=== PATIENT | male | born 1940 | race Caucasian/White ===

== ENCOUNTER → 2019-07-01 | Outpatient (CLI) | payer OTHER ==
[2019-07-01 11:00] LABS: ABSOLUTE EOSINOPHILS 0.3 thou/uL (0.0-0.7); ABSOLUTE LYMPHOCYTES 2.1 thou/uL (0.8-5.3); ABSOLUTE MONOCYTES 0.6 thou/uL (0.0-1.2); ABSOLUTE NEUTROPHILS 2.9 thou/uL (1.6-8.1); BASOPHILS 0.7 %; EOSINOPHILS 5.8 %; HEMOGLOBIN 13.5 gm/dL (14.0-18.0); LYMPHOCYTES 34.7 %; MCH 31.2 pg (26.0-34.0); MCHC 33.7 g/dL (28.0-37.0); MCV 92.6 fL (80.0-100.0); MONOCYTES 9.6 %; MPV 7.9 fl. (7.2-11.1); NUCLEATED RBCS 0 /100WBC; PLATELET COUNT* 231 thou/uL (150-400); POLYS 49.2 %; RBC 4.32 mil/uL (4.50-6.00); RDW-CV 14.3 % (10.5-14.5)
[2019-07-01 11:14] LABS: CALCIUM 9.3 mg/dL (8.5-10.1); CREATININE 1.1 mg/dL (0.6-1.3); POTASSIUM 4.1 mmol/L (3.5-5.1)
== END ==
LOC: M.RAD 10:39
PROVIDERS: Internal Medicine Cardiovascular Disease
DX: R06.09 Other forms of dyspnea (principal); R53.82 Chronic fatigue, unspecified

== ENCOUNTER → 2019-11-23 | Outpatient (CLI) | payer OTHER ==
--- NOTE | 2019-11-23 10:23 | 2DMMODE ---
[place] [address] 2 D/M-MODE ECHOCARDIOGRAM Name: MARY JOPRAFULSYLVIA MCCOY MELVIN [id number] Admission: 11/23/19 Attend Phys: Michael Polo, Discharge: Date of : 38 Date of Service: 11/23/19 1022 Report #: [id number] THIS REPORT FOR: //name// APPROVED REPORT Study performed: 11/23/2019 08:46:06 EXAM: Comprehensive 2D, Doppler, and color-flow Echocardiogram Patient Location: Out-Patient BSA: 1.96 HR: 72 bpm BP: 120/75 mmHg Other Information Study Quality: Fair Indications Cardiomyopathy 2D Dimensions IVSd: 11.95 (7-11mm) LVOT Diam: 20.23 (18-24mm) LVDd: 43.06 mm PWd: 11.28 (7-11mm) Ascending Ao: 31.44 (22-36mm) LVDs: 30.76 (25-40mm) Aortic Root: 26.78 mm Volumes Left Atrial Volume (Systole) LA ESV Index: 21.90 mL/m2 Aortic Valve AoV Peak Michael.: 1.34 m/s AO Peak Gr.: 7.23 mmHg LVOT Max P.17 mmHg AO Mean Gr.: 4.44 mmHg LVOT Mean P.76 mmHg LVOT Max V: 0.89 m/s AO V2 VTI: 30.93 cm LVOT Mean V: 0.62 m/s NINOSKA (VTI): 2.39 cm2 LVOT V1 VTI: 22.96 cm Mitral Valve MV Decel. Time: 380.10 ms MV PHT: 110.23 ms MVA (PHT): 2.00 [place] [address] 2 D/M-MODE ECHOCARDIOGRAM Name: SYLVIA AMES MELVIN Room: [facility]#: [id number] Admission: 11/23/19 Attend Phys: Michael Polo, Discharge: Date of : 38 Date of Service: 11/23/19 1022 Report #: [id number] Medial E' Michael.: 0.07 m/s Lateral E' Michael.: 0.05 m/s Pulmonary Valve PV Peak Michael.: 1.07 m/s PV Peak Gr.: 4.59 mmHg Left Ventricle The left ventricle is normal size. There is normal LV segmental wall motion. There is normal left ventricular wall thickness. The left ventricular systolic function is normal. The left ventricular ejection fraction is within the normal range. LVEF is 50-55%. This study is not technically sufficient to allow evaluation of the LV diastolic function. Right Ventricle The right ventricle is normal size. The right ventricular systolic function is normal. Atria The left atrium size is normal. The right atrium size is normal. Aortic Valve The aortic valve is normal in structure. No aortic regurgitation is present. There is no aortic valvular stenosis. Mitral Valve The mitral valve is normal in structure. There is no mitral valve regurgitation noted. No evidence of mitral valve stenosis. Tricuspid Valve The tricuspid valve is normal in structure. There is no tricuspid valve regurgitation noted. Pulmonic Valve Pulmonic valve is not well visualized. There is no pulmonic valvular regurgitation. Great Vessels The aortic root is normal in size. IVC is normal in size and collapses >50% with inspiration. Pericardium There is no pericardial effusion. <Conclusion> [place] [address] 2 D/M-MODE ECHOCARDIOGRAM Name: SYLVIA AMES MELVIN Room: [facility] ANGELA Barone#: [id number] Admission: 11/23/19 Attend Phys: Michael Polo, Discharge: Date of : 38 Date of Service: 11/23/19 1022 Report #: [id number] The left ventricular systolic function is normal. The left ventricular ejection fraction is within the normal range. <ELECTRONICALLY SIGNED> By: Manolo Ramos MD, [facility] 11/23/19 1022 1022 1022 Manolo Ramos MD, FACC /INF
== END ==
LOC: M.CRD 08:41
DX: I42.9 Cardiomyopathy, unspecified (principal)

== ENCOUNTER → 2020-07-06 | Outpatient (CLI) | payer OTHER ==
[2020-07-06 10:08] LABS: HEMATOCRIT 40.5 % (42.0-52.0); MCH 31.5 pg (26.0-34.0); MCHC 34.5 g/dL (28.0-37.0); MCV 91.6 fL (80.0-100.0); MPV 7.3 fl. (7.2-11.1); RBC 4.42 mil/uL (4.50-6.00); RDW-CV 14.2 % (10.5-14.5); WBC 5.7 thou/uL (4.0-11.0)
[2020-07-06 10:16] LABS: CALCIUM 8.9 mg/dL (8.5-10.1); CREATININE 1.1 mg/dL (0.6-1.3); POTASSIUM 4.6 mmol/L (3.5-5.1)
--- NOTE | 2020-07-06 15:17 | 2DMMODE ---
[place] [address] 2 D/M-MODE ECHOCARDIOGRAM Name: SYLVIA AMES Room: [facility] BraxtonCharleen#: [id number] Admission: 07/06/20 Attend Phys: Michael Polo, Discharge: Date of : 38 Date of Service: 07/06/20 1517 Report #: [id number] THIS REPORT FOR: cc: Lux Stephens MD, William MD Blick,Manolo Chau MD [facility] ~ APPROVED REPORT Study performed: 07/06/2020 09:51:49 EXAM: Comprehensive 2D, Doppler, and color-flow Echocardiogram Patient Location: Out-Patient BSA: 1.99 HR: 68 bpm BP: 120/75 mmHg Other Information Study Quality: Fair Indications Cardiomyopathy 2D Dimensions IVSd: 13.40 (7-11mm) LVOT Diam: 20.43 (18-24mm) LVDd: 47.46 mm PWd: 12.49 (7-11mm) Ascending Ao: 27.50 (22-36mm) LVDs: 24.36 (25-40mm) Aortic Root: 29.15 mm Volumes Left Atrial Volume (Systole) LA ESV Index: 13.40 mL/m2 Aortic Valve AoV Peak Michael.: 1.12 m/s AO Peak Gr.: 5.06 mmHg LVOT Max P.17 mmHg AO Mean Gr.: 2.46 mmHg LVOT Mean P.09 mmHg LVOT Max V: 0.74 m/s AO V2 VTI: 24.98 cm LVOT Mean V: 0.48 m/s NINOSKA (VTI): 2.37 cm2 LVOT V1 VTI: 18.05 cm Mitral Valve E/A Ratio: 0.52 [place] [address] 2 D/M-MODE ECHOCARDIOGRAM Name: SYLVIA AMES MELVIN Room: [facility]#: [id number] Admission: 07/06/20 Attend Phys: Michael Polo, Discharge: Date of : 38 Date of Service: 07/06/20 1517 Report #: [id number] MV Decel. Time: 391.60 ms MV E Max Michael.: 0.39 m/s MV PHT: 113.56 ms MVA (PHT): 1.94 cm2 TDI E/Lateral E': 7.80 E/Medial E': 6.50 Medial E' Mcihael.: 0.06 m/s Lateral E' Michael.: 0.05 m/s Pulmonary Valve PV Peak Michael.: 0.84 m/s PV Peak Gr.: 2.84 mmHg Left Ventricle The left ventricle is normal size. There is normal LV segmental wall motion. Mild concentric left ventricular hypertrophy. Left ventricular systolic function is normal. The left ventricular ejection fraction is within the normal range. LVEF is 50-55%. Grade I - abnormal relaxation pattern. Right Ventricle The right ventricle is normal size. The right ventricular systolic function is normal. Atria The left atrium size is normal. The right atrium size is normal. Aortic Valve The Aortic valve is sclerotic. No aortic regurgitation is present. There is no aortic valvular stenosis. Mitral Valve The mitral valve is normal in structure. There is no mitral valve regurgitation noted. No evidence of mitral valve stenosis. Tricuspid Valve The tricuspid valve is normal in structure. There is trace tricuspid valve regurgitation noted. Pulmonic Valve Pulmonic valve is not well visualized. There is no pulmonic valvular regurgitation. Great Vessels The aortic root is normal in size. IVC [place] [address] 2 D/M-MODE ECHOCARDIOGRAM Name: SYLVIA AMES Room: [facility]#: [id number] Admission: 07/06/20 Attend Phys: Michael Polo, Discharge: Date of : 38 Date of Service: 07/06/20 1517 Report #: [id number] collapses >50% with inspiration. Pericardium There is no pericardial effusion. <Conclusion> Mild concentric left ventricular hypertrophy. LVEF is 50-55%. The Aortic valve is sclerotic. <ELECTRONICALLY SIGNED> By: Manolo Ramos MD, [facility] 07/06/20 1517 16 16 Manolo Ramos MD, [facility] /INF
== END ==
LOC: M.LAB 09:24 → M.CRD 10:00
PROVIDERS: ATTEND Internal Medicine Cardiovascular Disease
DX: I08.0 Rheumatic disorders of both mitral and aortic valves (principal); I42.9 Cardiomyopathy, unspecified; R53.82 Chronic fatigue, unspecified

== ENCOUNTER 2021-03-09 11:25 | Inpatient (IN) | payer OTHER ==
[~2021-03-09] VITALS: Ht 175.3 cm; Wt 83.9 kg
[2021-03-09] VITALS (9 sets, daily range): BP systolic 126–152; BP diastolic 65–77
[2021-03-09] MEDS ORDERED: HEART MEDICATION (11:36)
[2021-03-09] MEDS ORDERED: CHILDREN'S ASPI81 M1 PO (11:36)
[2021-03-09 11:50] LABS: ABSOLUTE BASOPHILS 0.1 thou/uL (0.0-0.2); ABSOLUTE EOSINOPHILS 0.3 thou/uL (0.0-0.7); ABSOLUTE LYMPHOCYTES 2.3 thou/uL (0.8-5.3); ABSOLUTE MONOCYTES 0.5 thou/uL (0.0-1.2); ABSOLUTE NEUTROPHILS 2.9 thou/uL (1.6-8.1); BASOPHILS 0.9 %; EOSINOPHILS 5.7 %; HEMATOCRIT 40.5 % (42.0-52.0); HEMOGLOBIN 13.6 gm/dL (14.0-18.0); LYMPHOCYTES 37.4 %; MCH 31.1 pg (26.0-34.0); MCHC 33.6 g/dL (28.0-37.0); MCV 92.6 fL (80.0-100.0); MONOCYTES 7.5 %; MPV 7.3 fl. (7.2-11.1); NUCLEATED RBCS 0 /100WBC; PLATELET COUNT* 268 thou/uL (150-400); POLYS 48.5 %; RBC 4.38 mil/uL (4.50-6.00)
[2021-03-09 12:02] LABS: APTT 23.5 Seconds (25.0-31.3); CALCIUM 9.6 mg/dL (8.5-10.1); CREATININE 1.4 mg/dL (0.6-1.3); POTASSIUM 4.2 mmol/L (3.5-5.1); PROTIME 10.9 Seconds (9.20-11.50)
[2021-03-09 12:12] LABS: ALBUMIN 4.1 g/dL (3.4-5.0); MAGNESIUM 2.3 mg/dL (1.8-2.4); TOTAL BILIRUBIN 0.4 mg/dL (<0.1-1.0); TOTAL PROTEIN 8.6 g/dL (6.4-8.2)
[2021-03-09 13:26] LABS: CHOLESTEROL 196 mg/dL (<200); HDL CHOLESTEROL 42 mg/dL (>40); LDL CHOLESTEROL 117 mg/dL (<100); SERUM ASSESSMENT Clear; TC:HDL 4.7 Ratio (Not establshd); TRIGLYCERIDE 186 mg/dL (<150); VLDL 37 mg/dL (<40)
--- NOTE | 2021-03-09 15:23 | 2DMMODE ---
[place] [address] 2 D/M-MODE ECHOCARDIOGRAM Name: SYLVIA AMES Room: [place] [address] ADM IN [place].#: [id number] Admission: 03/09/21 Attend Phys: Lux Mendosa Discharge: Date of : 38 Date of Service: 03/09/21 1522 Report #: [id number] THIS REPORT FOR: cc: Peterson Salazar,Michael Major MD [facility] ~ APPROVED REPORT Study performed: 03/09/2021 13:47:24 EXAM: Comprehensive 2D, Doppler, and color-flow Echocardiogram Patient Location: Observation BSA: 2.00 HR: 65 bpm BP: 126/59 mmHg Other Information Study Quality: Adequate Indications Ventricular Tachycardia 2D Dimensions IVSd: 19.10 (7-11mm) LVOT Diam: 21.59 (18-24mm) LVDd: 42.72 mm PWd: 13.60 (7-11mm) Ascending Ao: 34.48 (22-36mm) LVDs: 35.23 (25-40mm) Aortic Root: 29.78 mm Volumes Left Atrial Volume (Systole) LA ESV Index: 19.80 mL/m2 Aortic Valve AoV Peak Michael.: 0.93 m/s AO Peak Gr.: 3.45 mmHg LVOT Max P.62 mmHg AO Mean Gr.: 1.70 mmHg LVOT Mean P.83 mmHg LVOT Max V: 0.64 m/s AO V2 VTI: 19.16 cm LVOT Mean V: 0.42 m/s NINOSKA (VTI): 2.56 cm2 LVOT V1 VTI: 13.40 cm Mitral Valve E/A Ratio: 0.45 [place] [address] 2 D/M-MODE ECHOCARDIOGRAM Name: SYLVIA AMES [place] Room: [place] [address] ADM IN .R.#: [id number] Admission: 03/09/21 Attend Phys: Lux Mendosa Discharge: Date of : 38 Date of Service: 03/09/21 1522 Report #: [id number] MV Decel. Time: 274.17 ms MV E Max Michael.: 0.44 m/s MV PHT: 79.51 ms MVA (PHT): 2.77 cm2 TDI E/Lateral E': 5.50 E/Medial E': 6.29 Medial E' Michael.: 0.07 m/s Lateral E' Michael.: 0.08 m/s Pulmonary Valve PV Peak Michael.: 0.79 m/s PV Peak Gr.: 2.52 mmHg Tricuspid Valve RAP Estimate: 5.00 mmHg TR Peak Gr.: 11.18 mmHg RVSP: 16.18 mmHg PA Pressure: 16.18 mmHg Left Ventricle The left ventricle is normal size. There is left ventricular systolic dyssynergy consistent with underlying bundle branch block. Moderate concentric left ventricular hypertrophy. The left ventricular systolic function is normal. Increased echogenicity in the LV apex which appears most likely to be heavy trabeculation. LVEF is 50-55%. Grade I - abnormal relaxation pattern. Right Ventricle The right ventricle is normal size. The right ventricular systolic function is normal. Atria The left atrium size is normal. The atrial septum is aneurysmal. The right atrium size is normal. Aortic Valve The aortic valve is normal in structure. No aortic regurgitation is present. There is no aortic valvular stenosis. Mitral Valve The mitral valve is normal in structure. There is no mitral valve regurgitation noted. No evidence of mitral valve stenosis. Tricuspid Valve The tricuspid valve is normal in structure. Trace [place]icus[place] [address] 2 D/M-MODE ECHOCARDIOGRAM Name: SYLVIA AMES MELVIN Room: [address] IN .R.#: [id number] Admission: 03/09/21 Attend Phys: Lux Mendosa Discharge: Date of : 38 Date of Service: 03/09/21 1522 Report #: [id number] Pulmonic Valve The pulmonary valve is normal in structure. There is no pulmonic valvular regurgitation. Great Vessels The aortic root is normal in size. IVC is normal in size and collapses >50% with inspiration. Pericardium Trace pericardial effusion. <Conclusion> The left ventricle is normal size. Moderate concentric left ventricular hypertrophy. The left ventricular systolic function is normal. LVEF is 50-55%. Grade I - abnormal relaxation pattern. There is left ventricular systolic dyssynergy consistent with underlying bundle branch block. Increased echogenicity in the LV apex which appears most likely to be heavy trabeculation. Trace tricuspid regurgitation. IVC is normal in size and collapses >50% with inspiration. Trace pericardial effusion. <ELECTRONICALLY SIGNED> By: Michael Polo MD, FACC 03/09/21 152 21 152 Michael Polo MD, FACC /INF
--- NOTE | 2021-03-09 15:25 | EKG ---
[place] [address] ELECTROCARDIOGRAM REPORT Name: SYLVIA AMES Room: [place] [address] ADM IN ..#: [id number] Admission: 03/09/21 Attend Phys: Lux Mendosa Discharge: Date of : 38 Date of Service: 03/09/21 1129 Report #: [id number] THIS REPORT FOR: //name// [facility] ED Test Date: 2021-03-09 Test Time: 11:29:43 Pat Name: SYLVIA AMES Department: Room: [facility] Gender: M Fingernail Former: ADELSO : 1940 Requested By: Junior Moura Order Number: [id number] MD: Michael Polo Measurements Intervals [place] Rate: 71 P: 46 WA: 59 QRS: 27 QRSD: 150 T: 166 QT: 470 QTc: 511 Interpretive Statements Sinus rhythm Premature atrial complexes left bundle branch block Compared to ECG 07/21/2006 15:50:46 Short WA interval now present Sinus rhythm no longer present Electronically Signed On 03-09-2021 15:25:30 CDT by Michael Polo [email or web address] <ELECTRONICALLY SIGNED> By: Michael Polo MD, FAC 03/09/21 1525 1129 1129 Michael Polo MD, FAC /EPI
[2021-03-10] VITALS (7 sets, daily range): BP systolic 121–151; BP diastolic 49–65
[2021-03-10 04:23] LABS: HEMATOCRIT 38.8 % (42.0-52.0); MCH 30.9 pg (26.0-34.0); MCHC 33.5 g/dL (28.0-37.0); MCV 92.3 fL (80.0-100.0); MPV 7.5 fl. (7.2-11.1); RBC 4.2 mil/uL (4.50-6.00); WBC 8.4 thou/uL (4.0-11.0)
[2021-03-10 04:54] LABS: ALBUMIN 3.4 g/dL (3.4-5.0); CREATININE 1.1 mg/dL (0.6-1.3); POTASSIUM 3.9 mmol/L (3.5-5.1); TOTAL BILIRUBIN 0.4 mg/dL (<0.1-1.0); TOTAL PROTEIN 7.4 g/dL (6.4-8.2)
[2021-03-10 06:06] LABS: TROPONIN-I LEVEL 1.09 ng/mL (<0.06)
--- NOTE | 2021-03-10 16:52 | EKG ---
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1940 Requested By: Michael Polo Order Number: [id number] Bharath MD: Cesar Dailey Measurements Intervals [place] Rate: 63 P: 0 TN: 158 QRS: 19 QRSD: 139 T: 120 QT: 518 QTc: 531 Interpretive Statements Sinus rhythm Left bundle branch block Compared to ECG 03/09/2021 11:29:43 Atrial premature complex(es) no longer present Electronically Signed On 03-10-2021 16:52:18 CDT by Cesar Dailey [email or web address] <ELECTRONICALLY SIGNED> By: Cesar Dailey MD, [facility] 03/10/21 1652 0847 0847 Cesar Dailey MD, [facility] /EPI
--- NOTE | 2021-03-10 17:08 | CARD ---
[address] [address] CARDIAC CATH REPORT Name: SYLVIA AMES Room: [address] IN .R.#: [id number] Admission: 03/09/21 Attend Phys: Day Riley Discharge: Date of : 38 Report #: [id number] THIS REPORT FOR: cc: Peterson Salazar,Peterson Tyson,Cesar Newby MD [facility] ~ APPROVED REPORT Study performed: 03/09/2021 15:48:04 Patient Details Patient Status: ED Room #: The patient is a 80 year-old male Event Personnel Emil Tapia Reeves, Adam RTR Monitor, Missy Trejo RN RN, Michael Polo Rn Palliative Care Procedures Performed Left Heart Cath w/or w/o Coronaries [id number] [facility] [address] w/wo Plasty Single LAD [id number] Hemostasis w/ Angioseal Indication Unstable angina Risk Factors Hypercholesterolemia, Hypertension Admission/Lab Medications/Medications given during procedure Lidocaine Subcut 20 ml, Angiomax IV 13 ml, Angiomax IV 30 ml per hr, Nitroglycerin IC 200 mcg, Effient PO 60 mg, Aspirin PO 162 mg, Angiomax IV 13 ml, Angiomax IV 30 ml per hr, Nitroglycerin IC 200 mcg, Effient PO 60 mg, Aspirin PO 162 mg Procedure Narrative The patient was brought urgently to the Cardiac Catheterization Laboratory and was prepped and draped in a sterile manner. The right femoral was infiltrated with 2% Lidocaine subcutaneous anesthesia. A [place] 6 FR sheath was inserted into the right femoral artery. Coronary angiography was performed using coronary diagnostic catheters. The right coronary system was accessed and visualized with a Diagnostic JR4 6Fr catheter. The left coronary system was accessed and visualized with a Diagnostic JL4 6Fr [place] [address] CARDIAC CATH REPORT Name: HUISYLVIA MELVIN Room: [address] IN [facility].#: [id number] Admission: 03/09/21 Attend Phys: Day Riley Discharge: Date of : 38 Report #: [id number] was accessed and visualized with a Diagnostic Pigtail 6Fr catheter. Left ventricular/Aortic Valve gradient assessed via catheter pullback. Left ventriculogram was performed in ARMANDO projection. Pre-demployment femoral angiogram was performed . Closure device was deployed with a 6 Fr Angioseal. The patient tolerated the procedure well and there were no complications associated with the procedure. There was no hematoma. Intraoperative Conscious Sedation Sedation start time: 1614 Case end Time: 1703 Fluoro Time: 10.8 minutes Dose: DAP 818231 cGycm2 2507.77 mGy Contrast Type and Amount: Visipaque 300 ml Diagnostic Cath Left Main 10% distal narrowing LAD 80% calcified proximalmid LAD stenosis Circumflex 50% narrowing the proximal portion of the prominent first marginal branch Right Coronary Small nondominant vessel vessel with 50% ostial narrowing Left Ventriculography The left ventricle is normal in size with Mildly decreased contractility. The left ventricular ejection fraction is estimated to be 45-50%. Left ventricular wall motion abnormalities are present. There is no mitral insufficiency. Mild anteroapical hypokinesis is noted Hemodynamics The aortic pressure is 141/65 mmHg with a mean of 97 mmHg. The left ventricular pressure is 141/4 mmHg with a mean of mmHg. The left ventricular end diastolic pressure is 17 mmHg. There was no gradient across the aortic valve upon pullback. PCI Technique Lesion Anticoagulation was achieved with Angiomax. 13mL Percutaneous coronary intervention was performed on the proximalmid left anterior descending artery segment. The lesion stenosis prior to intervention was 80% with NELLA 3 flow. A 6F XB LAD 3.5 Guide Catheter was used to engage the Left ostium. A IG: BMW 190cm Interventional Guidewire was used to cross the [place] [address] CARDIAC CATH REPORT Name: SYLVIA AMES [place] Room: [address] IN .R.#: [id number] Admission: 03/09/21 Attend Phys: Day Riley Discharge: Date of : 38 Report #: [id number] Balloon catheter Trek RX 2.75 X 12 was inserted and inflated up to 8.00atm for 10seconds. Additional Inflation: 16.00atm for 13seconds. Additional Inflation: 16.00atm for 10seconds. STENT DEPLOYMENT A drug-eluting stent [place] RX Stent 2.50o47lk was inserted and inflated up to 8.00atm for 15seconds. POST STENT DEPLOYMENT BALLOON DILATION A Balloon catheter NC Trek RX 2.75 X 12 was inserted and inflated up to 12.00atm for 7seconds. Additional Inflation: 15.00atm for 9seconds. Additional Inflation: 12.00atm for 6seconds. Final angiography reveals 0 % stenosis with NELLA 3 flow. Conclusion 1. Significant coronary artery disease characterized by the following: A 10% distal left main coronary narrowing B 80% calcified proximalmid LAD stenosis C 50% narrowing of the proximal portion of the prominent first marginal branch of the circumflex D 50% ostial narrowing of the small nondominant right coronary artery 2. Mild impairment in global LV function, estimate ejection fraction 45 - 50% with anteroapical hypokinesis 3. Mild elevation of left ventricular end diastolic pressure at rest 4. Successful PCI with deployment of drug-eluting stent at the site of 80% proximalmid LAD stenosis with 0% residual narrowing and NELLA-3 flow to the distal vessel Recommendations Cardiac Risk Reduction Program Aggressive Medical [place] [address] CARDIAC CATH REPORT Name: HUISYLVIA MELVIN Room: [address] IN ..#: [id number] Admission: 03/09/21 Attend Phys: Day Riley Discharge: Date of : 38 Report #: [id number] Aspirin (any) Prasugrel Diagnostic Cath Approved by: Michael Polo MD Date/Time: 03/10/2021 17:06:27 <ELECTRONICALLY SIGNED> By: Cesar Dailey MD, FACC 03/10/21 170 07 07Joolu Dailey MD, FACC /INF
[2021-03-11 04:00] VITALS: BP 141/74
[2021-03-11 04:24] LABS: HEMATOCRIT 39.2 % (42.0-52.0); HEMOGLOBIN 13.2 gm/dL (14.0-18.0); MCH 31.2 pg (26.0-34.0); MCHC 33.7 g/dL (28.0-37.0); MCV 92.6 fL (80.0-100.0); MPV 7.4 fl. (7.2-11.1); RBC 4.23 mil/uL (4.50-6.00); RDW-CV 14.3 % (10.5-14.5); WBC 10.1 thou/uL (4.0-11.0)
[2021-03-11 04:40] LABS: ALBUMIN 3.5 g/dL (3.4-5.0); CALCIUM 8.9 mg/dL (8.5-10.1); CREATININE 1.2 mg/dL (0.6-1.3); TOTAL BILIRUBIN 0.4 mg/dL (<0.1-1.0); TOTAL PROTEIN 7.6 g/dL (6.4-8.2)
[2021-03-11 08:00] VITALS: BP 113/61
--- NOTE | 2021-03-11 11:13 | CARD ---
[address] [address] CARDIAC CATH REPORT Name: SYLVIA AMES Room: [address] IN [facility].#: [id number] Admission: 03/09/21 Attend Phys: Day Riley Discharge: Date of : 38 Report #: [id number] THIS REPORT FOR: cc: Peterson Salazar Vincent R. DO Liston, Michael J. MD [facility] ~ APPROVED REPORT Study performed: 03/10/2021 17:05:53 Patient Status: In-Patient Room #: Event Personnel: Michael Polo Theology Teacher, Missy Trejo RN Ceramic Tile Installer, Caitlyn Oconnor RTR Scrub, Emil Tapia COORDINATOR VOLUNTEER SERVICES Monitor Exam: Insertion of a Dual Chamber ICD Indications: Secondary prevention of unstable ventricular tachycardia. The patient is a 80 year-old male with a history of Unstable ventricular tachycardia and nonischemic cardiomyopathy. Intraoperative Conscious Sedation Sedation start time: 1724 Case end Time: 1757 Fentanyl 25 mcg Versed 2.0 mg Implanted Devices: Rivacor 7 DR-T biotrinic, model #435175, serial #[id number] dual-chamber pacing defibrillator generator Plexa Pro MRI SD 6518, model #252855, serial #[id number] pacing RV ICD lead Solia S 53, model #093523, serial #[id number] atrial lead Solia S [address] 7 [address]-T Procedure After explaining the risks, benefits, and alternative options, informed consent was obtained from the patient. The patient was brought to the cardiac catheterization lab and the left chest and shoulder were prepped and draped in the usual fashion. During this case, Fluoroscopy and visipaque 20cc were used for imaging. IV conscious sedation was used throughout procedure with appropriate monitoring and was performed in the presence [place] [address] CARDIAC CATH REPORT Name: SYLVIA AMES MELVIN Room: [address] IN [facility].#: [id number] Admission: 03/09/21 Attend Phys: Day Riley Discharge: Date of : 38 Report #: [id number] who was an independent trained observer other than the physician performing the procedure. After informed consent was obtained the area of the left chest was prepped and draped in sterile fashion. Local anesthesia was achieved with 1% lidocaine. After initial incision was made a device pocket was formed over the pectoralis muscle using electrocautery and blunt dissection. Next the left subclavian vein was accessed using a micropuncture kit. A safety J guidewire was advanced to the area of the right atrium under fluoroscopic guidance. The micropuncture kit was utilized a second time to access the subclavian vein a second time and a second safety J guidewire advanced to the area of the right atrium under fluoroscopic guidance. An 8 English tear-away introducer was advanced over one of the safety J guidewire's. The guidewire and dilator were removed and an RV pacing ICD defibrillator lead was advanced to the right ventricular apex under fluoroscopic guidance. The lead was actively fixed. Thresholds were checked and deemed to be satisfactory. There was adequate sensing. The tear-away introducer was removed. Next a 6 English tear-away introducer was advanced over the remaining guidewire. The dilator and guidewire were removed and the atrial lead advanced to secure position with the right atrial appendage. The lead was actively fixed. Thresholds were checked and deemed to be satisfactory. Adequate sensing was assured. The tear-away introducer was then removed. Next after adequate slack was assured of the leads that they were secured within the device pocket using the designated cuff and 0 silk suture. The device pocket was then flushed with antibiotic solution. The pacing RV lead and atrial lead were then attached to the ICD generator. The redundant lead and generator were placed within the device pocket. The deep tissues were closed with interrupted stitches of 2-0 Vicryl. The skin incision was then closed with a single subcuticular stitch of 4-0 Vicryl. Several Steri-Strips were then placed across the incision and a sterile Telfa dressing placed. The patient tolerated procedure well without complication. Complications The patient tolerated the procedure well and there were no complications associated with the procedure. Findings Specimens Removed: No Estimated Blood Loss: 5ml Conclusion 1. [place] [address] CARDIAC CATH REPORT Name: SYLVIA AMES Room: [address] IN M.R.#: [id number] Admission: 03/09/21 Attend Phys: Day Riley Discharge: Date of : 38 Report #: [id number] 2. Nonischemic cardiomyopathy. 3. Successful placement of a pacing ICD lead with atrial and ventricular leads. Recommendations 1. Follow-up site check in 1 week. 2. Follow-up device interrogation in 1 to 2 months. <ELECTRONICALLY SIGNED> By: Michael Polo MD, FACC 03/11/211112 12 12Micsincere Polo MD, FACC /INF
[2021-03-11 12:00] VITALS: BP 119/65
--- NOTE | 2021-03-11 12:57 | EKG ---
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 : 1940 Requested By: Michael Polo Order Number: [id number] Bharath MD: Manolo Ramos Measurements Intervals [place] Rate: 68 P: 7 AL: 155 QRS: 7 QRSD: 138 T: 168 QT: 453 QTc: 482 Interpretive Statements Sinus rhythm Multiform ventricular premature complexes Left bundle branch block Compared to ECG 03/10/2021 08:47:39 Ventricular premature complex(es) now present Electronically Signed On 03-11-2021 12:57:09 CDT by Manolo Ramos [email or web address] <ELECTRONICALLY SIGNED> By: Manolo Ramos MD, FAC 03/11/21 1257 1122 1122 Manolo Ramos MD, FAC /EPI
[2021-03-11 16:00] VITALS: BP 115/64
[2021-03-11 20:00] VITALS: BP 131/62
[2021-03-12] VITALS (7 sets, daily range): BP systolic 108–156; BP diastolic 59–81
[2021-03-12 05:01] LABS: ABSOLUTE EOSINOPHILS 0.5 thou/uL (0.0-0.7); ABSOLUTE LYMPHOCYTES 2.4 thou/uL (0.8-5.3); ABSOLUTE MONOCYTES 0.8 thou/uL (0.0-1.2); ABSOLUTE NEUTROPHILS 6.3 thou/uL (1.6-8.1); BASOPHILS 0.3 %; EOSINOPHILS 5.1 %; HEMATOCRIT 35.5 % (42.0-52.0); HEMOGLOBIN 12.1 gm/dL (14.0-18.0); LYMPHOCYTES 23.6 %; MCV 91.2 fL (80.0-100.0); MONOCYTES 8.2 %; MPV 7.6 fl. (7.2-11.1); NUCLEATED RBCS 0 /100WBC; PLATELET COUNT* 228 thou/uL (150-400); POLYS 62.8 %; RBC 3.89 mil/uL (4.50-6.00)
[2021-03-12 05:18] LABS: ALBUMIN 3.1 g/dL (3.4-5.0); CALCIUM 8.8 mg/dL (8.5-10.1); CREATININE 1.1 mg/dL (0.6-1.3); POTASSIUM 4.1 mmol/L (3.5-5.1); TOTAL BILIRUBIN 0.4 mg/dL (<0.1-1.0)
[2021-03-12] MEDS ORDERED: PACERONE 200 M200 M1 PO (09:32)
[2021-03-12] MEDS ORDERED: PAIN RELIEVER500 MG PO (09:32)
[2021-03-12] MEDS ORDERED: EFFIENT10 MG PO (09:32)
[2021-03-12] MEDS ORDERED: LIPITOR40 MG PO (09:32)
[2021-03-12] MEDS ORDERED: CARVEDILOL3.125 MG PO (09:32)
[2021-03-13 03:45] VITALS: BP 127/76
[2021-03-13 04:14] LABS: HEMATOCRIT 31.5 % (42.0-52.0); HEMOGLOBIN 10.7 gm/dL (14.0-18.0); MCH 31.5 pg (26.0-34.0); MCV 92.7 fL (80.0-100.0); MPV 7.7 fl. (7.2-11.1); RBC 3.4 mil/uL (4.50-6.00); WBC 9.3 thou/uL (4.0-11.0)
[2021-03-13 04:22] LABS: CALCIUM 8.4 mg/dL (8.5-10.1); CREATININE 1.2 mg/dL (0.6-1.3); POTASSIUM 4.1 mmol/L (3.5-5.1)
[2021-03-13 08:10] VITALS: BP 136/57
[2021-03-13 08:20] VITALS: BP 136/57
[2021-03-13 12:46] VITALS: BP 118/62
--- NOTE | 2021-03-13 13:52 | EKG ---
[place] [address] ELECTROCARDIOGRAM REPORT Name: SYLVIA AMES Room: [address] ADM [place] .R.#: [id number] Admission: 03/09/21 Attend Phys: Lux Mendosa Discharge: Date of : 38 Date of Service: 03/13/21 1106 Report #: [id number] THIS REPORT FOR: //name// [facility] Test Date: 2021-03-13 Test Time: 11:06:00 Pat Name: SYLVIA AMES Department: Room: [address] Gender: M Rinkman: : 1940 Requested By: Manolo Ramos Order Number: [id number] Bharath MD: Manolo Ramos Measurements Intervals [place] Rate: 60 P: IN: 160 QRS: -10 QRSD: 148 T: 176 QT: 481 QTc: 481 Interpretive Statements Atrial-paced rhythm Left bundle branch block Compared to ECG 03/11/2021 11:22:08 Sinus rhythm no longer present Ventricular premature complex(es) no longer present Electronically Signed On 03-13-2021 13:52:35 CDT by Manolo Ramos [email or web address] <ELECTRONICALLY SIGNED> By: Manolo Ramos MD, FAC 03/13/21 1352 1106 1106 Manolo Ramos MD, FAC /EPI
[2021-03-13 14:56] VITALS: BP 118/62
[2021-03-13] MEDS ORDERED: COZAAR 25 MG TA25 M1 PO (15:20)
[2021-03-14 03:36] VITALS: BP 135/62
[2021-03-14 08:00] VITALS: BP 105/61
[2021-03-14 11:30] VITALS: BP 131/56
[2021-03-14 14:23] VITALS: BP 121/61
[2021-03-14 16:00] VITALS: BP 124/53
[2021-03-14 23:37] VITALS: BP 111/51
[2021-03-15 04:00] VITALS: BP 110/53
[2021-03-15 07:40] VITALS: BP 110/57
[2021-03-15 10:55] VITALS: BP 118/62
[2021-03-15 11:46] VITALS: BP 118/62; BP 121/61
== END 2021-03-15 11:48 | disposition home or self-care (01) | DRG 222 ==
LOC: M.ERS 11:25 → M.TBA-ER 12:21 → M.2W 12:21
PROVIDERS: Emergency Medicine Emergency Medical Services; Internal Medicine Cardiovascular Disease; Registered Nurse; ADMIT Internal Medicine; ATTEND Internal Medicine
PROC: B211YZZ Fluoroscopy of Multiple Coronary Arteries using Other Contrast (ICD-10-PCS; principal; 2021-03-09)
PROC: 027034Z Dilation of Coronary Artery, One Artery with Drug-eluting Intraluminal Device, Percutaneous Approach (ICD-10-PCS; principal; 2021-03-09)
PROC: 4A023N7 Measurement of Cardiac Sampling and Pressure, Left Heart, Percutaneous Approach (ICD-10-PCS; principal; 2021-03-09)
PROC: B215YZZ Fluoroscopy of Left Heart using Other Contrast (ICD-10-PCS; principal; 2021-03-09)
PROC: 02H73KZ Insertion of Defibrillator Lead into Left Atrium, Percutaneous Approach (ICD-10-PCS; 2021-03-10)
PROC: 02HL3KZ Insertion of Defibrillator Lead into Left Ventricle, Percutaneous Approach (ICD-10-PCS; 2021-03-10)
PROC: 0JH608Z Insertion of Defibrillator Generator into Chest Subcutaneous Tissue and Fascia, Open Approach (ICD-10-PCS; 2021-03-10)
DX: I21.4 Non-ST elevation (NSTEMI) myocardial infarction (principal); N17.0 Acute kidney failure with tubular necrosis; R65.11 Systemic inflammatory response syndrome (SIRS) of non-infectious origin with acute organ dysfunction; I47.2 Ventricular tachycardia; Q21.1 Atrial septal defect; I42.8 Other cardiomyopathies; I10 Essential (primary) hypertension; M19.90 Unspecified osteoarthritis, unspecified site; I34.0 Nonrheumatic mitral (valve) insufficiency; I44.7 Left bundle-branch block, unspecified; Z20.822 Contact with and (suspected) exposure to COVID-19; Z79.82 Long term (current) use of aspirin; Z88.8 Allergy status to other drugs, medicaments and biological substances

== ENCOUNTER 2021-03-19 17:40 | Emergency (ER) | payer OTHER ==
[~2021-03-19] VITALS: Ht 175.3 cm; Wt 77.6 kg
[~2021-03-19 17:40] MED LIST: CARVEDILOL3.125 MG PO; CHILDREN'S ASPI81 M1 PO; COZAAR 25 MG TA25 M1 PO; EFFIENT10 MG PO; HEART MEDICATION; LIPITOR40 MG PO; PACERONE 200 M200 M1 PO; PAIN RELIEVER500 MG PO
[2021-03-19 18:25] VITALS: BP 125/54
== END 2021-03-19 18:26 | disposition home or self-care (01) ==
LOC: M.ERS 17:40
DX: Z45.018 Encounter for adjustment and management of other part of cardiac pacemaker (principal); Z48.01 Encounter for change or removal of surgical wound dressing; I10 Essential (primary) hypertension; M19.90 Unspecified osteoarthritis, unspecified site; Z88.8 Allergy status to other drugs, medicaments and biological substances

== ENCOUNTER → 2021-05-10 | Outpatient (CLI) | payer OTHER | LOC: M.CT 12:30 | PROVIDERS: ATTEND Family Medicine | DX: S09.90XA Unspecified injury of head, initial encounter (principal); M47.812 Spondylosis without myelopathy or radiculopathy, cervical region; M48.02 Spinal stenosis, cervical region; M25.78 Osteophyte, vertebrae; W19.XXXA Unspecified fall, initial encounter; Y93.89 Activity, other specified; Y92.89 Other specified places as the place of occurrence of the external cause; Y99.8 Other external cause status ==